=== PATIENT | male | born 1935 | race Caucasian/White ===

== ENCOUNTER 2023-01-26 19:56 | Emergency (ER) | payer MEDICAID ==
[~2023-01-26] VITALS: Ht 157.5 cm; Wt 73.0 kg
[2023-01-26 20:35] VITALS: BP 149/63
== END 2023-01-26 23:40 | disposition home or self-care (01) ==
LOC: ER 19:56
DX: S00.81XA Abrasion of other part of head, initial encounter (principal); I10 Essential (primary) hypertension; W18.30XA Fall on same level, unspecified, initial encounter; Y93.89 Activity, other specified; Y92.89 Other specified places as the place of occurrence of the external cause; Y99.8 Other external cause status
CPT/HCPCS: 70486; 71045; 72170; 99284

== ENCOUNTER 2025-07-23 19:21 | Emergency (ER) | payer MEDICAID ==
[~2025-07-23] VITALS: Ht 162.6 cm; Wt 58.4 kg
[2025-07-23 19:31] VITALS: TEMP 36.8; O2SAT 97
[2025-07-23] MEDS: TETRACAINE 0.5% OPHTH DROPS 4ML LEFTEYE ONE (21:31)
[2025-07-23] MEDS: FLUORESCEIN SODIUM 1MG/STRIP LEFTEYE ONE (21:31)
[2025-07-23 22:25] VITALS: BP 152/54; PULSE 57; RESP 15; O2SAT 96
== END 2025-07-23 22:26 | disposition home or self-care (01) ==
LOC: ER 19:21
DX: S05.12XA Contusion of eyeball and orbital tissues, left eye, initial encounter (principal); H53.8 Other visual disturbances; E11.9 Type 2 diabetes mellitus without complications; I10 Essential (primary) hypertension; Z86.73 Personal history of transient ischemic attack (TIA), and cerebral infarction without residual deficits; Y09 Assault by unspecified means; Y93.89 Activity, other specified; Y92.89 Other specified places as the place of occurrence of the external cause; Y99.8 Other external cause status
CPT/HCPCS: 70486; 99284

== ENCOUNTER 2025-08-11 17:30 | Emergency (ER) | payer MEDICAID ==
[~2025-08-11] VITALS: Ht 167.6 cm; Wt 63.0 kg
[2025-08-11 17:37] VITALS: TEMP 36.8; O2SAT 100
[2025-08-11 19:23] VITALS: TEMP 98.3
[2025-08-11] MEDS: ACETAMINOPHEN 500MG TABLET PO ONE (19:23)
[2025-08-11 21:05] LABS: INFLUENZA TYPE A Presumptive Negative (Pres. Neg.); INFLUENZA TYPE B Presumptive Negative (Pres. Neg.)
[2025-08-11 21:19] VITALS: BP 121/62; PULSE 68; RESP 15; O2SAT 98
== END 2025-08-11 22:18 | disposition left against medical advice (07) ==
LOC: ER 17:30
DX: B34.9 Viral infection, unspecified (principal); E11.9 Type 2 diabetes mellitus without complications; I10 Essential (primary) hypertension; Z86.73 Personal history of transient ischemic attack (TIA), and cerebral infarction without residual deficits; Z20.822 Contact with and (suspected) exposure to COVID-19
CPT/HCPCS: 87426; 87804; 99283